=== PATIENT | female | born 1955 | race Caucasian/White ===

== ENCOUNTER 2021-10-09 11:20 | Day surgery (SDC) | payer MEDICARE ==
[~2021-10-09] VITALS: Ht 162.6 cm; Wt 54.1 kg
[2021-10-09] MEDS ORDERED: normal saline 1000ml 1,000 ML IV PRN (11:40)
[2021-10-09 11:44] VITALS: BP 127/77
[2021-10-09] MEDS ORDERED: BACL10TA2 PO (11:59)
[2021-10-09] MEDS ORDERED: BIOT10004 PO (11:59)
[2021-10-09] MEDS ORDERED: MULT-1085 PO (11:59)
[2021-10-09] MEDS ORDERED: FLUT16SP2 BOTHNARES (11:59)
[2021-10-09] MEDS ORDERED: CALC-336 PO (11:59)
[2021-10-09] MEDS ORDERED: CETI10TA15 PO (11:59)
[2021-10-09] MEDS ORDERED: LIDOcaine 1%/PF 5ML 10 MG/ML VIAL ONE (12:54)
[2021-10-09] MEDS ORDERED: midazolam 1 mg/ML 2ml injection ONE (12:54)
[2021-10-09] MEDS ORDERED: heparin sodium, porcine/PF 100unit/ml 5ML syringe ONE (12:54)
[2021-10-09] MEDS ORDERED: fentaNYL/PF 50MCG/1 ML 2ML syringe ONE (12:55)
[2021-10-09 14:23] VITALS: BP 146/83
[2021-10-09 14:32] VITALS: BP 130/75
[2021-10-09 14:45] VITALS: BP 121/90
[2021-10-09 15:00] VITALS: BP 123/80
== END 2021-10-09 15:30 | disposition home or self-care (01) ==
LOC: SSTAY O 11:20
PROVIDERS: ATTEND Radiology Vascular & Interventional Radiology
DX: C50.911 Malignant neoplasm of unspecified site of right female breast (principal); Z79.899 Other long term (current) drug therapy; Z88.0 Allergy status to penicillin
CPT/HCPCS: 36561; 76937; 77001; 99152; 99153; C1788; C1894; J1642; J2250; J3010; J3490; J7030; A6258